=== PATIENT | female | born 1970 | race Caucasian/White ===

== ENCOUNTER 2017-07-05 22:10 | Inpatient (IN) | payer OTHER ==
[2017-07-05 23:29] LABS: #Basophils 0.1 thou/uL (0.0-0.2); #Lymphocytes 2.8 thou/uL (1.20-3.40); #Monocytes 1.6 thou/uL (0.11-0.59); #Neutrophils 15.2 thou/uL (1.40-6.50); %Basophils 0.6 % (0.0-1.0); %Eosinophils 0.2 % (0.0-10.0); %Lymphocytes 14.3 % (21.0-51.0); Hemoglobin 16.2 g/dL (12.0-16.0); Mean Corpuscular HGB CONC 35.2 g/dL (32.0-36.0); Mean Corpuscular Hemoglobin 30.7 pg (27.0-31.0); Mean Corpuscular Volume 87.3 fl (81.0-99.0); Platelet Count 425 thou/uL (130-400); RBC Distribution Width 12.7 % (11.5-14.5); Red Blood Cell (RBC) Count 5.29 mill/uL (4.20-5.40); White Blood Cell (WBC) Count 19.8 thou/uL (4.8-10.8)
[2017-07-05 23:48] LABS: ALT (SGPT) 22 U/L (8-55); AST (SGOT) 27 U/L (5-34); Alkaline Phosphatase 100 U/L (40-150); Anion Gap 25 mmol/L (10-20); BUN (Urea Nitrogen) 30 mg/dL (7.0-18.7); Bilirubin, Total 1.2 mg/dL (0.2-1.2); Calc. Creatinine Clearance 0 mL/min (70-130); Calcium 11.5 mg/dL (7.8-10.44); Carbon Dioxide 25 mmol/L (22-29); Chloride 80 mmol/L (98-107); Estimated GFR-MDRD 9; Globulin 4.4 g/dL (2.4-3.5); Glucose 133 mg/dL (70-105); Potassium 3.2 mmol/L (3.5-5.1); Protein, Total 10.4 g/dL (6.0-8.3); Sodium 127 mmol/L (136-145)
[2017-07-05] MEDS ORDERED: Ondansetron HCl/PF 4 MG/2 ML Vial ONE (23:50)
[2017-07-05] MEDS ORDERED: Morphine 4 MG/ML VIAL ONE (23:56)
[2017-07-05] MEDS ORDERED: Mag-Al 1200 mg/1200 mg/30 ML UDCUP ONE (23:56)
[2017-07-05] MEDS ORDERED: Lidocaine Viscous Sol 2% 15 ml UD Cup ONE (23:56)
[2017-07-06 00:16] LABS: BHCG - Serum Negative (NEGATIVE); Pregs Control Background? CLEAR/WHITE (CLR/WHITE); Pregs Control Bar Appear? YES (CONTROL BAR)
[2017-07-06 00:21] LABS: Magnesium 2.6 mg/dL (1.6-2.6)
[2017-07-06] MEDS ORDERED: Morphine 4 MG/ML VIAL ONE (00:52)
[2017-07-06] MEDS ORDERED: Sodium Chloride 0.9% 15 ML NEB ONE (02:51)
[2017-07-06] MEDS ORDERED: Sodium Chloride 0.9% 1,000 ML IV SCH ×3 (02:59→08:30)
[2017-07-06 03:29] LABS: Bacteria/HPF None Seen HPF (None Seen); Bilirubin Small (Negative); Blood, Urine Large (Negative); Clarity TURBID (Clear); Glucose, Urine (Dipstick) Negative (Negative); Leukocyte Trace (Negative); Nitrite Negative (Negative); Protein, Urine (Dipstick) 100 mg/dL (Neg-Trace); Specific Gravity, Urine 1.024 (1.002-1.036); Urobilinogen 0.2 mg/dL (0.2-1.0); WBC/HPF 21-50 HPF (0-3)
[2017-07-06 03:37] LABS: Hyaline Casts/LPF 0-3 HYALINE CAST LPF (0-3 Hyaline); Other Casts/LPF None Seen LPF (0-3 Hyaline)
[2017-07-06 03:38] LABS: Crystals/HPF 1+ CA OXALATE HPF (Negative)
[2017-07-06] MEDS ORDERED: ALPRAZolam 0.25 MG TAB PO PRN (04:02)
[2017-07-06 04:14] LABS: Lactic Acid 1.6 mmol/L (0.5-2.2)
[2017-07-06 04:17] VITALS: BMI 23.4
[2017-07-06] MEDS ORDERED: Fentanyl 100 MCG/2 ML VIAL SLOW IVP PRN (04:37)
--- NOTE | 2017-07-06 04:53 | PDOC.FPRHP ---
- History of Present Illness Chief Complaint: N/V, weakness, cramping x3 days History of Present Illness: 47 year old female with PMH of HTN and anxiety, and depression that presents with a 3 day history of N/V, weakness, and muscle cramping. She felt fine previous to the onset of these symptoms and has been otherwise healthy. Patient follows regularly with her PCP and is compliant with her BP medications. She states that she has been unable to eat for the past few days. She has tried to stay hydrated by drinking a lot of fluids, but has had difficulty keeping those down, as well. She started taking potassium yesterday because she was concerned her potassium would be low from all of the vomiting. She took a total of six 99 mg tablets in a 24 hour period. She describes the emesis as yellow/green in color, but denies any coffee ground emesis. She had one episode of diarrhea, but has otherwise had normal stools. She denies any bright red blood per rectum or maroon colored stools. Patient endorses diffuse abdominal pain over the last few days. She did state that prior to the onset of the symptoms she had eaten some [place] food. She describes a reflux sensation with some mile epigastric pain. She does have a history of several episodes pancreatitis which was attributed to a medication which has since been discontinued. She has not had any episodes of pancreatitis since that medication was stopped. Patient also endorses LBP which started a few days before the N/V and has worsened since that time. She has a sister with renal failure which she attributes to non-compliance with BP medications. Patient does state that she has had decreased urinary output over the last few days, but denies dysuria. Patient endorses a rash on her back and left arm that started on Wednesday. The rash was made worse with hot water and has progressed over the back. The rash does not itch. Patient denies any fevers or chills during this current illness. ED Course: Patient was started on fluids at 150 mL/hr, 4 mg of zofran, 8 mg of Morphine, and a GI cocktail down in the ED. - Allergies/Adverse Reactions Allergies Allergy/AdvReac Type Severity Reaction Status Date / Time escitalopram [From Lexapro] AdvReac Severe Hives Verified 07/06/17 03:47 mirtazapine [From Remeron] AdvReac Verified 07/06/17 03:47 - Home Medications Medication Instructions Recorded Confirmed Type ALPRAZolam [Alprazolam] 0.5 mg PO HS 07/06/17 07/06/17 History ALPRAZolam [Xanax] 0.25 mg PO BID PRN 07/06/17 07/06/17 History Amitriptyline HCl [Amitriptyline 50 mg PO HS 07/06/17 07/06/17 History HCl] Losartan Potassium [Losartan 100 mg PO DAILY 07/06/17 07/06/17 History Potassium] Metoprolol Tartrate [Lopressor] 50 mg PO HS 07/06/17 07/06/17 History Omeprazole 20 mg PO DAILY 07/06/17 07/06/17 History - History PMHx: HTN, Anxiety, Depression PSHx: None FHx: Mother with HTN. Sister with renal failure presumed to be secondary to non- compliance with BP medication. Social: Patient denies tobacco, alcohol or drug use. - Review of Systems General: reports: weight/appetite/sleep changes (decreased appetite 2/2 N/V). denies: fever/chills, night sweats, fatigue Eyes: reports: eye pain (Irritation from dry eyes and contacts). denies: vision changes ENT: denies: nasal congestion, rhinorrhea Respiratory: denies: cough, congestion, shortness of breath Cardiovascular: denies: chest pain, palpitation, edema Gastrointestinal: reports: nausea, vomiting, abdominal pain. denies: constipation, GI bleeding Genitourinary: reports: dysuria. denies: polyuria Skin: reports: rashes (Blanchable rash on back and left arm) Musculoskeletal: reports: pain (LBP), other (Muscle cramping) Neurological: reports: weakness. denies: syncope, seizure Psychological: reports: anxiety, depression - Vital signs BP: [128/78] HR: [64] RR: [16] Tmax: [97.9] Pox: [100]% on [RA] Wt: [60 kg] - Physical Exam Constitutional: NAD, awake, alert and oriented, well developed HEENT: normocephalic and atraumatic, EOMI, no scleral icterus, grossly normal vision -HEENT: Dry mucous membranes Neck: supple Heart: RRR, normal S1/S2, no murmurs/rubs/gallops, pulses present Lungs: CTAB, no respiratory distress, no wheezing Abdomen: soft, non-tender, bowel sounds present, no masses/distention Musculoskeletal: normal structure -Musculoskeletal: Costovertebral angle tenderness on right Neurological: no focal deficit, CN II-XII intact Skin: good turgor, capillary refill <2 seconds -Skin: Blanchable, erythematous, non-pruritic macular rash with some confluent lesions located diffusely throughout on the back and on the flexor surface of the right arm. Heme/Lymphatic: no unusual bruising or bleeding Psychiatric: normal mood and affect, good judgment and insight FMR H&P: Results - Labs Result Diagrams: 07/06/17 03:35 07/06/17 15:00 Lab results: WBC 19.8 thou/uL (4.8-10.8) H 07/05/17 23:21 Hgb 16.2 g/dL (12.0-16.0) H 07/05/17 23:21 Hct 46.2 % (36.0-47.0) 07/05/17 23:21 MCV 87.3 fl (81.0-99.0) 07/05/17 23:21 Plt Count 425 thou/uL (130-400) H 07/05/17 23:21 Neutrophils % 77.0 % (42.0-75.0) H 07/05/17 23:21 Sodium 127 mmol/L (136-145) L 07/05/17 23:21 Potassium 3.2 mmol/L (3.5-5.1) L 07/05/17 23:21 Chloride 80 mmol/L (98-107) L 07/05/17 23:21 Carbon Dioxide 25 mmol/L (22-29) 07/05/17 23:21 BUN 30 mg/dL (7.0-18.7) H 07/05/17 23:21 Creatinine 5.10 mg/dL (0.6-1.1) H 07/05/17 23:21 Glucose 133 mg/dL (70-105) H 07/05/17 23:21 Lactic Acid 1.6 mmol/L (0.5-2.2) 07/06/17 03:52 Calcium 11.5 mg/dL (7.8-10.44) H 07/05/17 23:21 Total Bilirubin 1.2 mg/dL (0.2-1.2) 07/05/17 23:21 AST 27 U/L (5-34) 07/05/17 23:21 ALT 22 U/L (8-55) 07/05/17 23:21 Alkaline Phosphatase 100 U/L (40-150) 07/05/17 23:21 Serum Total Protein 10.4 g/dL (6.0-8.3) H 07/05/17 23:21 Albumin 6.0 g/dL (3.5-5.0) H 07/05/17 23:21 Lipase 33 U/L (8-78) 07/05/17 23:41 Urine Ketones Negative mg/dL (Negative) 07/06/17 01:41 Urine Blood Large (Negative) H 07/06/17 01:41 Urine Nitrite Negative (Negative) 07/06/17 01:41 Ur Leukocyte Esterase Trace (Negative) H 07/06/17 01:41 Urine RBC 4-6 HPF (0-3) 07/06/17 01:41 Urine WBC 21-50 HPF (0-3) H 07/06/17 01:41 Ur Squamous Epith Cells 4-6 HPF (0-3) H 07/06/17 01:41 Urine Bacteria None Seen HPF (None Seen) 07/06/17 01:41 - Radiology Interpretation Chest x-ray Additional comment: No acute findings CT scan - abdomen Additional comment: No acute findings FMR H&P: A/P - Problem List (1) Acute renal failure Current Visit: Yes Status: Acute (2) Macular erythematous rash Current Visit: Yes Status: Acute Code(s): L53.8 - OTHER SPECIFIED ERYTHEMATOUS CONDITIONS (3) HTN (hypertension) Current Visit: Yes Status: Acute Code(s): I10 - ESSENTIAL (PRIMARY) HYPERTENSION (4) Anxiety Current Visit: Yes Status: Acute Code(s): F41.9 - ANXIETY DISORDER, UNSPECIFIED (5) Depression Current Visit: Yes Status: Acute Code(s): F32.9 - MAJOR DEPRESSIVE DISORDER , SINGLE EPISODE, UNSPECIFIED - Plan Acute renal failure - New onset without history of prior kidney disease; presented with N/V x3 days - Consult nephrology in the AM - K+ 3.2 - BUN 30, Cr 5.10 - Given 1L NS bolus, started on maintenance fluids at 200 ml/hr - CK pending - Renal U/S pending - CT abdomen did not show any acute findings - Stool lactoferrin pending - Replace electrolytes as appropriate - WBC 19,000, LA 2.7 - Blood cultures pending - HIV, syphilis studies pending - Urine studies pending - UA with trace leukocyte esterases and 21-50 WBC's, Urine culture pending, large blood - Consider starting rocephin until cultures result Macular, erythematous, non-pruritic rash - No recent travel history - HIV, Syphilis studies pending Hyponatremia - Likely 2/2 N/V - NS @ 200 ml/hr Hypokalemia - Likely 2/2 N/V - Replaced x1 with 20 meq KCL - Monitor HTN - Continue metoprolol - Hold losartan due to kidney failure Anxiety - Continue home medications Depression - Continue home medications FMR H&P: Upper Level - Pertinent history 47yo CF w/ pmhx sig for well-controlled HTN, anxiety, and prior pancreatitis presents after 4 days of recurrent nausea and vomiting and inability to tolerate po. Pt endorses bilious and green-tinged vomiting but no bloody or coffee-ground emesis noted. 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 The only associated abdominal pain was mild and epigastric and more reflux-like per pt, as well as some right-sided back pain. Denied any associated fever or chills. Endorses dec UOP. No sig travel hx recently or ill contacts. Did have take-out food on Sat just prior to initiation of symptoms which was [place] food with rice, chicken and vegetables. She has taken a few tylenol throughout the week and potassium tablets for aches / cramps related to her presumed dehydration. Compliant on anti-HTNive regimen ( losartan + metoprolol). Denies any NSAIDs, abx or other nephrotoxins. She has tried to push po fluids but has repetitively vomited anything by mouth. No prior renal problems in the past. Sister has CKD due to uncontrolled HTN. Fhx- HTN Social hx- no TAD - Pertinent findings PE- Gen- well appearing, NAD CV- RRR no mrg Lungs- CTAB Abd- soft, nontender to palpation, +Rt CVAT LE- no edema, intact dp pulses b/l Neuro- no focal deficits Derm- erythematous macular non-pruritic rash diffusely to back which blanched. few confluent patches. Laboratory Tests 07/05/17 07/05/17 07/05/17 23:21 23:21 23:41 WBC 19.8 H Hgb 16.2 H Hct 46.2 Plt Count 425 H Neutrophils % 77.0 H Sodium 127 L Potassium 3.2 L Chloride 80 L Carbon Dioxide 25 Anion Gap 25 H BUN 30 H Creatinine 5.10 H Estimated GFR (MDRD) 9 Glucose 133 H Lactic Acid Magnesium 2.6 Lipase 33 Urine Protein Urine Blood Urine Bilirubin Ur Leukocyte Esterase Urine WBC Urine Crystals Urine Creatinine Urine Sodium 07/05/17 07/06/17 07/06/17 23:41 01:41 03:52 WBC Hgb Hct Plt Count Neutrophils % Sodium Potassium Chloride Carbon Dioxide Anion Gap BUN Creatinine Estimated GFR (MDRD) Glucose Lactic Acid 2.7 H 1.6 Magnesium Lipase Urine Protein 100 H Urine Blood Large H Urine Bilirubin Small H Ur Leukocyte Esterase Trace H Urine WBC 21-50 H Urine Crystals 1+ CA OXALATE Urine Creatinine Urine Sodium 07/06/17 07/06/17 04:34 04:34 WBC Hgb Hct Plt Count Neutrophils % Sodium Potassium Chloride Carbon Dioxide Anion Gap BUN Creatinine Estimated GFR (MDRD) Glucose Lactic Acid Magnesium Lipase Urine Protein Urine Blood Urine Bilirubin Ur Leukocyte Esterase Urine WBC Urine Crystals Urine Creatinine 35.97 L Urine Sodium Less than 20 CT abd (w/o contrast)- neg - Plan Date/Time: 07/06/17 0440 47yo CF with pmhx HTN, prior pancreatitis p/w- 1) Acute renal failure- likely combination of prerenal + intrinsic due to history and clinical presentation and BUN:Cr ratio. DDx includes dehydration, post-infectious glomerulonephritis, etc. Check FeNa and urine microscopy. +Rt flank pain/CVAT, therefore check renal US. Give IVF for fluid repletion and monitor strict I&Os. avoid nephrotoxins, and consult nephrology. 2) Acute gastroenteritis- check fecal WBC, and if positive, will check for infectious etiology. Hx may be significant with relation to recent take out food. DDx includes viral etiology, e coli, b cereus, campylobacter, etc. treat symptomatically. no indication for abx at this time but will monitor. 3) hypovolemic hyponatremia- fluid repletion and recheck BMP in 6 hrs. avoid rapid correction of Na. 4) Maculopapular rash- undetermined etiology, but may be related to #1 & #2. check studies as above, HIV, RPR and Hep C. 5) HTN- hold losartan, continue metoprolol. monitor bps. I, [Yolanda Guaman DO ([email or web address])], have evaluated this patient and agree with findings/plan as outlined by internet webmaster resident. Pertinent changes/additions are listed here. Attending Addendum - Attending Addendum Date/Time: 07/06/17 1705 I personally evaluated the patient and discussed the management with Dr. Ortiz and Dr. Guaman I agree with the History, Examination, Assessment and Plan documented above with any addition or exceptions noted below. 47 yo female with history of HTN, A/D presents with intractable N/V since Wednesday. N/V appears to be related to food ingestion on Wednesday. Has improved with medications. On labs patient noted to have stage 3 ANGUS with GFR of 9. IVF bolus have been started. Will continue with maintenance x2. Repeat CMP vs BMP. Trace protein and no microscopic hematuria. Suspecting prerenal. Will obtain renal sono with dopplers to evaluate other causes. Consider vasculititis/autoimmune/other intrinsic causes if IVF resistation does not improve renal function. Nephro consulted. Erythematous macular patch vs erythroderma rash to face and trunk. Patient states rash has been present for many years. Comes and goes. Occurs with some stress. ABrayMD
[2017-07-06 05:03] LABS: Osmolality, Urine 126 mOsm/kg (300-900)
[2017-07-06 05:18] LABS: Sodium, Urine Less than 20 mmol/L (Not Available)
[2017-07-06] MEDS ORDERED: Potassium Chloride 20 MEQ/100 ML PREMIX BAG IVPB SCH (05:30)
[2017-07-06] MEDS ORDERED: Potassium Chloride 20 MEQ in Sodium Chloride 0.9% 250 ML 250 ML IVPB SCH (06:00)
[2017-07-06 07:00] LABS: HIV (1/2) Antibody/Antigen Non-Reactive (NonReactive); Syphilis Antibody Nonreactive (Nonreactive); Syphilis Antibody Index 0.03 S/CO (<1.00 Non-Reactive)
[2017-07-06 07:55] LABS: ALT (SGPT) 24 U/L (8-55); AST (SGOT) 30 U/L (5-34); Albumin Greater than 6.2 g/dL (3.5-5.0); Alkaline Phosphatase 100 U/L (40-150); Anion Gap 29 mmol/L (10-20); BUN (Urea Nitrogen) 31 mg/dL (7.0-18.7); Bilirubin, Total 1.3 mg/dL (0.2-1.2); CK (CPK) 922 U/L (29-168); Calc. Creatinine Clearance 13 mL/min (70-130); Calcium 11.6 mg/dL (7.8-10.44); Carbon Dioxide 22 mmol/L (22-29); Chloride 81 mmol/L (98-107); Estimated GFR-MDRD 9; Glucose 137 mg/dL (70-105); Potassium 3.4 mmol/L (3.5-5.1); Protein, Total 10.5 g/dL (6.0-8.3); Sodium 129 mmol/L (136-145)
[2017-07-06 08:04] LABS: Globulin 4.2 g/dL (2.4-3.5)
[2017-07-06 08:06] LABS: #Lymphocytes 2.1 thou/uL (1.20-3.40); #Monocytes 1.2 thou/uL (0.11-0.59); #Neutrophils 11.7 thou/uL (1.40-6.50); %Basophils 0.3 % (0.0-1.0); %Eosinophils 0.2 % (0.0-10.0); %Lymphocytes 14.1 % (21.0-51.0); %Monocytes 7.9 % (0.0-10.0); %Neutrophils 77.6 % (42.0-75.0); Hemoglobin 12.8 g/dL (12.0-16.0); Mean Corpuscular HGB CONC 33.5 g/dL (32.0-36.0); Mean Corpuscular Hemoglobin 30.1 pg (27.0-31.0); Mean Corpuscular Volume 89.8 fl (81.0-99.0); Mean Platelet Volume 7.8 fL (7.4-10.4); Platelet Count 316 thou/uL (130-400); RBC Distribution Width 12.6 % (11.5-14.5); Red Blood Cell (RBC) Count 4.25 mill/uL (4.20-5.40); White Blood Cell (WBC) Count 15.1 thou/uL (4.8-10.8)
[2017-07-06] MEDS ORDERED: Sodium Chloride For Inhalation 0.9% 3 ML NEB ONE (08:19)
--- NOTE | 2017-07-06 08:20 | RAD ---
PORTABLE UPRIGHT FRONTAL CHEST RADIOGRAPH: Date: 07-06-17 Comparison: 06-18-10 History: Abdominal pain. FINDINGS: Lungs are clear. Heart and mediastinal contours are unremarkable. IMPRESSION: No acute findings. POS: [facility]
--- NOTE | 2017-07-06 08:33 | CT ---
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 Pt also reports reflux, decreased appetite, and diffuse abdominal pain. Denies diarrhea or constip ation. Denies dysuria or vaginal discharge. Denies fever at home or chills. Lmp 05/20/17, pt not sexual ly active. Pt states that she has been trying potassium pills and staying hydrated at home with no relief of symptoms. Pt has h/o pancreatitis, ibs, anxiety, and reflux. Denies h/o abdominal s urgeries. TECHNIQUE: Axial computed tomography images of the abdomen and pelvis without intravenous contrast. Coronal reformatted images were created and reviewed. COMPARISON: No relevant prior studies available. FINDINGS: Lower thorax: No acute findings. ABDOMEN: Liver: Unremarkable. Gallbladder and bile ducts: Gallbladder sludge. No cholecystitis or biliary ductal dilatation. Pancreas: Unremarkable. No ductal dilation. Spleen: Unremarkable. No splenomegaly. Adrenals: Unremarkable. No mass. Kidneys and ureters: Unremarkable. No obstructing stones. No hydronephrosis. Stomach and bowel: No bowel wall thickening or intestinal obstruction. Appendix: Normal appendix. PELVIS: Bladder: Unremarkable. No stones. Reproductive: Uterus and ovaries are unremarkable. ABDOMEN and PELVIS: Intraperitoneal space: Unremarkable. No free air. No significant fluid collection. Bones/joints: No acute fracture. No dislocation. Soft tissues: Unremarkable. Vasculature: Unremarkable. No abdominal aortic aneurysm. Lymph nodes: Unremarkable. No enlarged lymph nodes. IMPRESSION: No acute findings. Thank you for allowing us to participate in the care of your patient. Dictated and Authenticated by: Casimiro So MD 07/06/2017 12:45 AM Central Time ([place] & [place]) FINAL REPORT: CT ABDOMEN AND PELVIS: Date: 07-06-17 History: Nausea, vomiting, diffuse abdominal pain. FINDINGS: I agree with the preliminary [facility] report dictated by Dr. So. Lack of contrast limits assessment of the viscera bowel vascular structures and for lymphadenopathy. Imaged lung base is unremarkable. No free intraperitoneal air or fluid. The stomach is distended and filled with fluid. Probable gallbladder sludge. Liver, spleen, pancreas and adrenal glands unremarkab le. There is a small hypodensity in the lateral right renal midpole measuring 6 mm, too small to raji acterize. No evidence for nephrolithiasis or obstructive uropathy noted on either side. Exophytic hyp odense lesion emanates from upper pole right kidney posteriorly measuring 9 mm, also too small to garry racterize. Urinary bladder is completely decompressed and poorly assessed. The uterus appears lobulated, which may signify uterine fibroid disease. There is no evidence for bowel inflammatory change or bowel obstruction. Visualized portions of the a ppendix appear grossly unremarkable. No acute osseous abnormality is seen. IMPRESSION: I agree with the preliminary [facility] report that there is no evidence for an acute abnormality. There is questionable gallbladder sludge and possible uterine fibroid disease. There are also subcentimeter r ight renal hypodensities which are too small to characterize on this exam. POS: [facility]
--- NOTE | 2017-07-06 09:06 | ULT ---
RENAL SONOGRAM: History: Renal failure. FINDINGS: The right kidney is 11.9 cm and the left is 10.5 cm. Each has a normal sonographic appearance without evidence of mass, stone, or hydronephrosis. Urinary bladder is incompletely distended. No focal abno rmalities. IMPRESSION: No evidence of urinary tract obstruction. No significant abnormalities are demonstrated. POS: [facility]
[2017-07-06] MEDS: Sodium Chloride 0.9% 1,000 ML IV SCH ×4 (10:29→23:29)
[2017-07-06] MEDS: Acetaminophen 500 MG TAB PO PRN ×3 (11:41→21:05)
[2017-07-06] MEDS ORDERED: Artificial Tears 18 DROP/0.9 ML EA EYE PRN (13:26)
--- NOTE | 2017-07-06 13:28 | CON ---
DATE OF CONSULTATION: 07/06/2017 CONSULTING PHYSICIAN: Geno Friend M.D. REQUESTING PHYSICIAN: [facility]. REASON FOR CONSULTATION: Acute kidney injury. IMPRESSION: 1. Acute kidney injury. This is possibly related to prerenal acute kidney injury in the context of persistent nausea and vomiting with poor p.o. intake; however, I am consent that an inflammatory proc ess might be going on and in this case, possibility of a crescentic glomerulonephritis, possibly in t he context of autoimmune rapidly progressive glomerulonephritis versus immune complex mediated glomer ulonephritis. This concern is as a result of the fact that this patient does have proteinuria, hemat uria and the presence of skin rash. 2. Pseudohyponatremia. This is likely in the context of hyperproteinemia. 3. Hyperproteinemia as well as hypercalcemia. This may be a reflection of the volume status of this patient. PLAN: 1. I do agree with continued aggressive IV fluid resuscitation; however, if within the next 24-48 ho urs, no significant improvement in the renal function, I will strongly recommend kidney biopsy for de finitive diagnosis. 2. We will begin to send autoimmune panel including complements and ANCA serology. 3. Renally dose all medications per low GFR. 4. Avoid potentially nephrotoxic agents. 5. Further management will be dependent on the clinical course as well as the response of this patie nt to IV fluid resuscitation. HISTORY OF PRESENT ILLNESS: History is that of a 47-year-old female patient who developed nausea, vo miting, and lower back pain, presented to the hospital here where patient was noted to have elevated creatinine of 5.1. Patient prior to these had normal renal function. She denies any use of any pote ntially nephrotoxic agents. No nonsteroidal anti-inflammatory drug usage recently. The patient kem es any dysuria nor any obvious hematuria. Urinalysis of this patient, however, did point to possible hematuria. The patient has never had similar symptoms in the past. Denies frothy urine. As a resu lt of these findings, decision has been taken to involve Renal in the management of this case. PAST MEDICAL HISTORY: Significant for hypertension, anxiety, and depression. MEDICATIONS: Reviewed and as documented on [employer]. SOCIAL HISTORY: Denies alcohol or illicit drug use. Patient occasionally smokes cigarettes. REVIEW OF SYSTEMS: As documented in the body of the history. All the other systems were reviewed an d found not to be significantly related to presenting illness. LABORATORY INVESTIGATION: Significant for the following: Sodium 129, potassium 3.4, creatinine 5.07 , BUN of 31 and serum osmolality of 283, calcium 11.6 with lactic acid of 2.7, total protein of 10.5 and albumin that is greater than 6.2, creatine kinase 922. PHYSICAL EXAMINATION: GENERAL: Patient was noted to obviously be flushed looking, complaining of left eye discomfort. VITAL SIGNS: Afebrile, temperature 98.7, pulse 66, respiratory 18, O2 saturation 100% with blood pre ssure 113/56. HEENT: Unremarkable except the left eye irritation going on. DIGESTIVE: Revealed a benign abdomen with positive bowel sounds. EXTREMITIES: No peripheral edema. SKIN: Reveals the presence of some rash involving the upper body as well. NEUROLOGIC: Alert, oriented. No lateralizing sign. LYMPHATICS: No peripheral lymphadenopathy. SUMMARY: A 47-year-old female patient who presented here with nausea and vomiting noted with elevate d creatinine, query cause. Also, now complaining of left eye discomfort, possibly will benefit from ophthalmology evaluation. Thank you for this consultation. We will follow with you.
[2017-07-06] MEDS ORDERED: Erythromycin Base 0.5% Oint 1 GM TUBE L EYE SCH (13:30)
[2017-07-06] MEDS ORDERED: Metoclopramide HCl 10 MG/2 ML VIAL IVP SCH (14:45)
[2017-07-06] MEDS ORDERED: diphenhydrAMINE 50 MG/ML VIAL IVP SCH (14:45)
[2017-07-06 14:54] LABS: Complement-C4 14.3 mg/dL (15-57)
[2017-07-06 15:38] LABS: Anion Gap 15 mmol/L (10-20); BUN (Urea Nitrogen) 21 mg/dL (7.0-18.7); Calc. Creatinine Clearance 30 mL/min (70-130); Calcium 9.2 mg/dL (7.8-10.44); Carbon Dioxide 24 mmol/L (22-29); Chloride 103 mmol/L (98-107); Estimated GFR-MDRD 24; Glucose 80 mg/dL (70-105); Potassium 3.5 mmol/L (3.5-5.1); Sodium 138 mmol/L (136-145)
[2017-07-06] MEDS ORDERED: Amitriptyline HCl 25 MG TAB PO SCH (21:00)
[2017-07-06] MEDS ORDERED: ALPRAZolam 0.5 MG TAB PO SCH (21:00)
[2017-07-06] MEDS ORDERED: Metoprolol Tartrate 50 MG TAB PO SCH (21:00)
[2017-07-06] MEDS: Erythromycin Base 0.5% Oint 1 GM TUBE L EYE SCH (21:03)
[2017-07-07 06:08] LABS: #Basophils 0.1 thou/uL (0.0-0.2); #Monocytes 0.7 thou/uL (0.11-0.59); #Neutrophils 2.7 thou/uL (1.40-6.50); %Basophils 0.9 % (0.0-1.0); %Eosinophils 0.6 % (0.0-10.0); %Lymphocytes 46.9 % (21.0-51.0); %Monocytes 10.2 % (0.0-10.0); %Neutrophils 41.3 % (42.0-75.0); Hemoglobin 11.9 g/dL (12.0-16.0); Mean Corpuscular HGB CONC 33.9 g/dL (32.0-36.0); Mean Corpuscular Hemoglobin 30.8 pg (27.0-31.0); Mean Corpuscular Volume 90.9 fl (81.0-99.0); Mean Platelet Volume 7.6 fL (7.4-10.4); Platelet Count 260 thou/uL (130-400); RBC Distribution Width 12.6 % (11.5-14.5); Red Blood Cell (RBC) Count 3.87 mill/uL (4.20-5.40); White Blood Cell (WBC) Count 6.5 thou/uL (4.8-10.8)
[2017-07-07 06:15] LABS: Anion Gap 11 mmol/L (10-20); BUN (Urea Nitrogen) 14 mg/dL (7.0-18.7); Calc. Creatinine Clearance 58 mL/min (70-130); Calcium 8.4 mg/dL (7.8-10.44); Carbon Dioxide 19 mmol/L (22-29); Chloride 111 mmol/L (98-107); Estimated GFR-MDRD 51; Glucose 81 mg/dL (70-105); Potassium 4.1 mmol/L (3.5-5.1); Sodium 137 mmol/L (136-145)
[2017-07-07] MEDS: Erythromycin Base 0.5% Oint 1 GM TUBE L EYE SCH ×2 (06:15→09:26)
[2017-07-07] MEDS ORDERED: Sodium Chloride 0.9% 1,000 ML IV SCH (08:13)
[2017-07-07 08:47] VITALS: BP 170/90; TEMP 97.9
[2017-07-07] MEDS: Sodium Chloride 0.9% 1,000 ML IV SCH ×2 (09:26→09:27)
--- NOTE | 2017-07-07 11:40 | PDOC.FM ---
- Subjective Subjective: No acute events overnight. Pt is eating and drinking well and making good urine. She states urine is clear and does not report any blood tinged urine or bloody stool. - Objective Vital Signs & Weight: Vital Signs (12 hours) Temp Pulse Resp BP BP Pulse Ox 07/07/17 08:44 97.9 F 70 18 170/90 H 98 07/07/17 08:00 98 F 66 18 07/07/17 04:00 98 F 66 18 143/72 H Weight Weight 60 kg I&O: 07/06/17 07/07/17 07/08/17 06:59 06:59 06:59 Intake Total 2622 3050 Output Total 1600 3190 Balance 1022 -140 Result Diagrams: 07/07/17 05:24 07/07/17 05:24 <Kiko Isaac - Last Filed: 07/07/17 11:37> - Objective Vital Signs & Weight: Vital Signs (12 hours) Temp Pulse Resp BP BP Pulse Ox 07/07/17 08:44 97.9 F 70 18 170/90 H 98 07/07/17 08:00 98 F 66 18 07/07/17 04:00 98 F 66 18 143/72 H Weight Weight 60 kg I&O: 07/06/17 07/07/17 07/08/17 06:59 06:59 06:59 Intake Total 2622 3050 Output Total 1600 3190 Balance 1022 -140 Result Diagrams: 07/07/17 05:24 07/07/17 05:24 <Dayana Torres - Last Filed: 07/07/17 14:34> Phys Exam - Physical Examination Constitutional: NAD HEENT: PERRLA, sclera anicteric conjunctivitis lt eye Neck: no nodes, no JVD Respiratory: no wheezing, no rales, no rhonchi, clear to auscultation bilateral Cardiovascular: RRR, no significant murmur, no rub Gastrointestinal: soft, non-tender, no distention, positive bowel sounds Musculoskeletal: no edema, pulses present Neurological: non-focal, moves all 4 limbs Psychiatric: normal affect Deviation from normal: blanchable non-pruritic erythematous rash, improved from yesterday <Kiko Isaac - Last Filed: 07/07/17 11:37> Dx/Plan (1) Acute renal failure Status: Acute (2) Macular erythematous rash Code(s): L53.8 - OTHER SPECIFIED ERYTHEMATOUS CONDITIONS Status: Acute (3) Conjunctivitis of left eye Code(s): H10.9 - UNSPECIFIED CONJUNCTIVITIS Status: Acute (4) Hyponatremia Code(s): E87.1 - HYPO-OSMOLALITY AND HYPONATREMIA Status: Acute (5) Hypokalemia Code(s): E87.6 - HYPOKALEMIA Status: Acute (6) HTN (hypertension) Code(s): I10 - ESSENTIAL (PRIMARY) HYPERTENSION Status: Acute - Plan Plan: Acute renal failure - greatly improved with IVF, cont PO hydration and Ok for discharge -pt can resume ARB after DC -f/u with nephrology in 2 weeks Macular, erythematous, non-pruritic rash - improving -unknown source -autoimmune studies pending, will f/u with results -stable for DC to home Conjunctivitis: -possibly 2/2 corneal abrasion, will treat empirically with erythromycin ointment for 5 days -f/u with pcp Hyponatremia -resolved Hypokalemia - resolved HTN - Continue metoprolol - Hold losartan due to kidney failure, can resume after DC -f/u with PCP -DC to home today Anxiety - Continue home medications <Kiko Isaac - Last Filed: 07/07/17 11:37> (1) Acute renal failure Status: Acute (2) Macular erythematous rash Code(s): L53.8 - OTHER SPECIFIED ERYTHEMATOUS CONDITIONS Status: Acute (3) HTN (hypertension) Code(s): I10 - ESSENTIAL (PRIMARY) HYPERTENSION Status: Acute (4) Anxiety Code(s): F41.9 - ANXIETY DISORDER, UNSPECIFIED Status: Acute (5) Depression Code(s): F32.9 - MAJOR DEPRESSIVE DISORDER, SINGLE EPISODE, UNSPECIFIED Status : Acute <Dayana Torres - Last Filed: 07/07/17 14:34> Attending Addendum - Attending Addendum Date/Time: 07/07/17 [id number] I personally evaluated the patient and discussed the management with Dr. Isaac and Dr. Joseph I agree with the History, Examination, Assessment and Plan documented above with any addition or exceptions noted below. Doing much better today. Labs and vital signs reviewed. Renal function drastically improved. Cleared for d/c from nephro. Will d/c to home. Continue with PO hydration. Follow up with PCP next week for repeat labs. No N/V since admission. Elicia <Dayana Torres - Last Filed: 07/07/17 14:34>
[2017-07-07 12:18] LABS: ANA Symphony (Qualitative) Negative (Negative); CCP IgG Antibody 0.8 EliAU/mL (<7 Negative); EliA RAS New Method **** NEW METHOD ****; Rheumatoid Factor IgA Antibody 2.6 IU/mL (<14 Negative); Rheumatoid Factor IgM Antibody Less than 0.5 IU/mL (<3.5 Negative)
--- NOTE | 2017-07-07 13:39 | PRG ---
DATE OF SERVICE: 07/07/2017 SUBJECTIVE: The patient is seen and examined, seems to be doing much better, very eager to go home. PHYSICAL EXAMINATION: VITAL SIGNS: Afebrile with temperature 98, pulse 66, respiratory 18, blood pressure 143/72. HEENT: Unremarkable with moist oral mucosa. No conjunctival injection or icterus. NECK: Supple. CARDIOVASCULAR: First and second heart sounds were heard. RESPIRATORY: Clear to auscultation. DIGESTIVE: Revealed a benign abdomen with positive bowel sounds. EXTREMITIES: No peripheral edema. SKIN: No new gross rash. LYMPHATICS: No peripheral lymphadenopathy. IMPRESSION: Acute kidney injury, which is much improved. PLAN: 1. From the renal standpoint, the patient is good for discharge. We will discontinue the current IV fluid. 2. Outpatient Nephrology followup within the next 2-4 weeks.
[2017-07-09 16:13] LABS: ANCA Pattern <1:20 titer (Neg:<1:20); ANCA Total <1:20 titer (Neg:<1:20); Atypical pANCA <1:20 titer (Neg:<1:20); Myeloperoxidase AutoAbs <9.0 U/mL (0.0-9.0); Proteinase-3 AutoAbs Less than 3.5 U/mL (0.0-3.5)
== END 2017-07-07 12:15 | disposition home or self-care (01) | DRG 683 ==
LOC: ERS 22:10 → 3SE 07-06 02:28
PROVIDERS: ADMIT Family Medicine; ATTEND Family Medicine
DX: N17.9 Acute kidney failure, unspecified (principal); E87.1 Hypo-osmolality and hyponatremia; E83.52 Hypercalcemia; E88.09 Other disorders of plasma-protein metabolism, not elsewhere classified; F17.210 Nicotine dependence, cigarettes, uncomplicated; L53.8 Other specified erythematous conditions; H10.9 Unspecified conjunctivitis; I10 Essential (primary) hypertension; F32.9 Major depressive disorder, single episode, unspecified; F41.9 Anxiety disorder, unspecified; E87.6 Hypokalemia
CPT/HCPCS: 36415; 71045; 74176; 76770; 80048; 80053; 81001; 82550; 82570; 83520; 83605; 83630; 83690; 83735; 83930; 83935; 83970; 84100; 84300; 84703; 85025; 86021; 86038; 86160; 86200; 86225; 86780; 87040; 87086; 87389; 87521; 96361; 96374; 96375; 96376; A4216; A4218; J1200; J2270; J2405; J2765; J3010; J3480; J7050

== ENCOUNTER 2017-07-14 10:56 | Emergency (ER) | payer OTHER ==
[2017-07-14 11:34] LABS: #Basophils 0.1 thou/uL (0.0-0.2); #Lymphocytes 2.5 thou/uL (1.20-3.40); #Monocytes 0.4 thou/uL (0.11-0.59); #Neutrophils 4.5 thou/uL (1.40-6.50); %Basophils 0.9 % (0.0-1.0); %Eosinophils 0.5 % (0.0-10.0); %Lymphocytes 33.5 % (21.0-51.0); %Monocytes 5.6 % (0.0-10.0); %Neutrophils 59.5 % (42.0-75.0); Hemoglobin 13.8 g/dL (12.0-16.0); Mean Corpuscular HGB CONC 34.2 g/dL (32.0-36.0); Mean Corpuscular Hemoglobin 31.1 pg (27.0-31.0); Mean Platelet Volume 7.3 fL (7.4-10.4); Platelet Count 404 thou/uL (130-400); RBC Distribution Width 12.4 % (11.5-14.5); Red Blood Cell (RBC) Count 4.43 mill/uL (4.20-5.40); White Blood Cell (WBC) Count 7.5 thou/uL (4.8-10.8)
[2017-07-14 11:53] LABS: ALT (SGPT) 17 U/L (8-55); AST (SGOT) 13 U/L (5-34); Albumin 5.1 g/dL (3.5-5.0); Alkaline Phosphatase 80 U/L (40-150); Anion Gap 16 mmol/L (10-20); BUN (Urea Nitrogen) 12 mg/dL (7.0-18.7); Bilirubin, Total 0.5 mg/dL (0.2-1.2); Calc. Creatinine Clearance 0 mL/min (70-130); Calcium 10.7 mg/dL (7.8-10.44); Carbon Dioxide 23 mmol/L (22-29); Chloride 97 mmol/L (98-107); Estimated GFR-MDRD 52; Globulin 3.4 g/dL (2.4-3.5); Glucose 109 mg/dL (70-105); Lipase 16 U/L (8-78); Potassium 3.9 mmol/L (3.5-5.1); Protein, Total 8.5 g/dL (6.0-8.3); Sodium 132 mmol/L (136-145)
[2017-07-14 14:08] LABS: Bilirubin Negative (Negative); Blood, Urine Moderate (Negative); Clarity TURBID (Clear); Glucose, Urine (Dipstick) 100 mg/dL (Negative); Leukocyte Negative (Negative); Nitrite Negative (Negative); Protein, Urine (Dipstick) 30 mg/dL (Neg-Trace); Specific Gravity, Urine 1.017 (1.002-1.036); Urobilinogen 0.2 mg/dL (0.2-1.0); pH, Urine 8.5 (5.0-9.0)
[2017-07-14 14:10] LABS: Bacteria/HPF None Seen HPF (None Seen); Hyaline Casts/LPF 0-3 HYALINE CAST LPF (0-3 Hyaline); RBC/HPF 21-50 HPF (0-3); Squamous Epithelial 0-3 HPF (0-3); WBC/HPF 0-3 HPF (0-3)
[2017-07-14 14:11] LABS: Pregnancy Test - Urine (BHCG) Negative (Negative); Pregu Control Background? CLEAR/WHITE (CLR/WHITE); Pregu Control Bar Appear? YES (CONTROL BAR); Specific Gravity 1.017 (1.002-1.036)
[2017-07-14] MEDS ORDERED: Morphine 4 MG/ML VIAL ONE ×2 (15:23→16:28)
[2017-07-14] MEDS ORDERED: Ondansetron HCl/PF 4 MG/2 ML Vial ONE ×2 (15:23→16:28)
--- NOTE | 2017-07-14 17:08 | CT ---
ABDOMEN CT WITHOUT CONTRAST PELVIC CT WITHOUT CONTRAST: History: Right flank pain, low back pain, nausea. Comparison: 07-06-16 Technique: Abdomen and pelvic CT is performed without IV or oral contrast. Coronal reformatted images are submitted for interpretation. FINDINGS: ABDOMEN CT: Lung bases are clear. Heart size is normal. No pericardial effusion. Descending thoracic aorta and ab dominal aorta are of normal caliber. No periaortic fat stranding. Symmetric attenuation of the psoas muscles. No gastrohepatic, retrocrural, or periportal lymphadenopathy. No mesenteric mass, lymphadenopathy, free air of free fluid. Limited evaluation of the solid organs due to lack of IV contrast. Grossly, no solid organ abnormalit y. Subtle hyperdensity in the lumen gallbladder may represent small sludge or stones. Stable hypodensity emanates from the posterior right renal cortex, unchanged. Bilaterally, no evidenc e of obstructive uropathy. Limited evaluation of the alimentary canal due to lack of oral contrast administration. No evidence o f bowel obstruction. There is fatty infiltration of the colonic mucosa, nonspecific. Normal caliber a ppendix. PELVIC CT: Uterus and adnexa structures are unremarkable. No mass, lymphadenopathy, free air or free fluid. Urin giovanna bladder is unremarkable. No lytic or blastic lesion in the osseous structures. IMPRESSION: 1. Possible sludge in the lumen of the gallbladder. No CT evidence of cholecystitis. 2. No evidence of obstructive uropathy. 3. Normal caliber appendix. POS: [facility]
[2017-07-14] MEDS ORDERED: Pantoprazole 40 MG VIAL ONE (17:55)
[2017-07-14] MEDS ORDERED: Mag-Al 1200 mg/1200 mg/30 ML UDCUP ONE (17:55)
[2017-07-14] MEDS ORDERED: Lidocaine Viscous Sol 2% 15 ml UD Cup ONE (17:55)
--- NOTE | 2017-07-17 19:59 | EKG ---
Test Reason : VOMITING Blood Pressure : / mmHG Vent. Rate : 069 BPM Atrial Rate : 069 BPM P-R Int : 154 ms QRS Dur : 076 ms QT Int : 470 ms P-R-T Axes : 063 079 072 degrees QTc Int : 503 ms Normal sinus rhythm with sinus arrhythmia Possible Left atrial enlargement Nonspecific ST abnormality Prolonged QT Abnormal ECG Confirmed by JERSEY KEMP ([id number]), acquisition editor JUVE DECKER ([id number]) on 07/17/2017 7:59:28 PM Referred By: VIRIDIANA Confirmed By:JERSEY KEMP
== END 2017-07-14 18:05 | disposition home or self-care (01) ==
LOC: ERS 10:56
DX: F41.9 Anxiety disorder, unspecified; N39.0 Urinary tract infection, site not specified; Z79.899 Other long term (current) drug therapy; Z87.891 Personal history of nicotine dependence; I10 Essential (primary) hypertension; K21.9 Gastro-esophageal reflux disease without esophagitis
CPT/HCPCS: 36415; 74176; 80053; 81003; 81015; 81025; 83690; 85025; 93005; 96361; 96374; 96375; C9113; J2270; J2405

== ENCOUNTER 2017-08-05 07:17 | Outpatient (CLI) | payer OTHER ==
--- NOTE | 2017-08-05 12:50 | NM ---
NUCLEAR MEDICINE HEPATOBILIARY SCAN: HISTORY: Right upper quadrant pain. History of possible sludge within the gallbladder noted on CT examination . COMPARISON: A CT study of 07/14/17. Examination is performed using 5.2 mCi of 99M Technetium mebrofenin at approximately 6 to 7 minutes. There appears to be gallbladder opacification. The liver shows a normal appearance. Emptying into the small bowel is seen by approximately 10-11 minutes. At approximately 57 minutes, the gallbladder disappears. Dr. Wilder questioned whether what we had seen was truly gallbladder, and a 2 mg dose of Morphine was given. Once again, there is opacification what appears to be gallbladder and on the de layed images it begins to disappear again suggesting it is fully erasmo. IMPRESSION: Unremarkable hepatobiliary scan. POS: [facility]
== END 2017-08-05 07:18 | disposition home or self-care (01) ==
LOC: NM 07:17
PROVIDERS: ATTEND Internal Medicine
DX: K80.20 Calculus of gallbladder without cholecystitis without obstruction (principal)
CPT/HCPCS: 78227; A9537; J2270

== ENCOUNTER 2018-09-29 08:39 | Outpatient (CLI) | payer OTHER ==
--- NOTE | 2018-09-29 09:31 | MMO ---
Bilateral MAMMO Bilat Screen [facility]. CLINICAL HISTORY: Patient is 48 years old and is seen for screening. The patient has no family history of breast cancer. The patient has no personal history of cancer. VIEWS: The views performed were: bilateral craniocaudal with tomosynthesis and bilateral mediolateral oblique with tomosynthesis. MAMMOGRAM FINDINGS: There are scattered fibroglandular densities. There are no suspicious masses, suspicious calcifications, or new areas of architectural distortion. IMPRESSION: THERE IS NO MAMMOGRAPHIC EVIDENCE OF MALIGNANCY. A ROUTINE FOLLOW-UP MAMMOGRAM IN 1 YEAR IS RECOMMENDED. THE RESULTS OF THIS EXAM WERE SENT TO THE PATIENT. ACR BI-RADS Category 1 - Negative MAMMOGRAPHY NOTE: 1. A negative mammogram report should not delay a biopsy if a dominant of clinically suspicious mass is present. 2. Approximately 10% to 15% of breast cancers are not detected by mammography. 3. Adenosis and dense breasts may obscure an underlying neoplasm.
== END 2018-09-29 08:40 | disposition home or self-care (01) ==
LOC: BICMAMMO 08:39
PROVIDERS: ATTEND Internal Medicine
DX: Z12.31 Encounter for screening mammogram for malignant neoplasm of breast (principal)
CPT/HCPCS: 77063; 77067

== ENCOUNTER 2020-08-19 13:38 | Outpatient (CLI) | payer OTHER | END 2020-08-19 13:39 | disposition home or self-care (01) | LOC: BICMAMMO 13:38 | PROVIDERS: ATTEND Internal Medicine | DX: Z12.31 Encounter for screening mammogram for malignant neoplasm of breast (principal) | CPT/HCPCS: 77063; 77067 ==

== ENCOUNTER 2021-10-13 11:19 | Emergency (ER) | payer OTHER ==
[2021-10-13] MEDS ORDERED: Ketorolac Tromethamine 30 MG/ML VIAL ONE (12:43)
== END 2021-10-13 13:03 | disposition home or self-care (01) ==
LOC: ERS 11:19
DX: K08.89 Other specified disorders of teeth and supporting structures (principal); I10 Essential (primary) hypertension; K21.9 Gastro-esophageal reflux disease without esophagitis; F17.210 Nicotine dependence, cigarettes, uncomplicated
CPT/HCPCS: 96372; 99282; J1885

== ENCOUNTER 2023-06-19 13:06 | Inpatient (IN) | payer OTHER ==
[2023-06-19 14:02] LABS: #Eosinphils 0.1 thou/uL (0.0-0.7); #Monocytes 0.6 thou/uL (0.11-0.59); #Neutrophils 7.9 thou/uL (1.40-6.50); %Basophils 0.3 % (0.0-1.0); %Eosinophils 0.7 % (0.0-10.0); %Monocytes 5.1 % (0.0-10.0); %Neutrophils 70.6 % (42.0-75.0); Hematocrit 34.6 % (36.0-47.0); Hemoglobin 12.5 g/dL (12.0-16.0); Mean Corpuscular HGB CONC 36.1 g/dL (32.0-36.0); Mean Corpuscular Volume 85.9 fl (78.0-98.0); Mean Platelet Volume 9.1 fL (7.4-10.4); Platelet Count 411 10x3/uL (130-400); RBC Distribution Width 13.4 % (11.5-14.5); Red Blood Cell (RBC) Count 4.03 mill/uL (4.20-5.40); White Blood Cell (WBC) Count 11.1 10x3/uL (4.8-10.8)
[2023-06-19 14:19] LABS: ALT (SGPT) 17 U/L (8-55); AST (SGOT) 17 U/L (5-34); Albumin 4.8 g/dL (3.5-5.0); Alkaline Phosphatase 91 U/L (40-110); Anion Gap 16 mmol/L (10-20); BUN (Urea Nitrogen) 6 mg/dL (9.8-20.1); Bilirubin, Total 0.4 mg/dL (0.2-1.2); Calc. Creatinine Clearance 0 mL/min (70-130); Calcium 10.2 mg/dL (7.8-10.44); Carbon Dioxide 19 mmol/L (22-29); Chloride 101 mmol/L (98-107); Estimated GFR 65; Globulin 3.2 g/dL (2.4-3.5); Glucose 106 mg/dL (70-105); Lipase 16 U/L (8-78); Magnesium 1.8 mg/dL (1.6-2.6); Potassium 2.8 mmol/L (3.5-5.1); Sodium 133 mmol/L (136-145)
[2023-06-19 14:23] LABS: Troponin I 0.013 ng/mL (< 0.028)
[2023-06-19] MEDS ORDERED: Potassium Chloride 20 MEQ TAB ONE (16:22)
[2023-06-19] MEDS ORDERED: Magnesium 2 GM/50 ML BAG (IN WATER) ONE (16:23)
[2023-06-19] MEDS ORDERED: hydrALAZINE 20 MG/ML VIAL ONE (16:52)
[2023-06-19 17:49] VITALS: BMI 24.5
[2023-06-19] MEDS: Scopolamine 1 mg/72 hour Patch TD SCH (18:08)
[2023-06-19 19:09] LABS: Influenza A by NAA Not Detected (NotDetected); Influenza B by NAA Not Detected (NotDetected); SARS-CoV-2 NAA Rapid Test Not Detected (NotDetected)
[2023-06-19] MEDS ORDERED: Ondansetron PF 4 MG/2 ML Vial IVP PRN (22:11)
[2023-06-19] MEDS ORDERED: Ondansetron ODT 4 MG TAB PO PRN (22:11)
[2023-06-19 22:52] LABS: Anion Gap 21 mmol/L (10-20); BUN (Urea Nitrogen) 7 mg/dL (9.8-20.1); Calc. Creatinine Clearance 38 mL/min (70-130); Calcium 10.7 mg/dL (7.8-10.44); Carbon Dioxide 21 mmol/L (22-29); Chloride 97 mmol/L (98-107); Estimated GFR 36; Glucose 142 mg/dL (70-105); Potassium 3.2 mmol/L (3.5-5.1); Sodium 136 mmol/L (136-145)
[2023-06-19] MEDS: Meclizine HCl 12.5 MG TAB PO PRN (22:55)
[2023-06-19] MEDS: Potassium Chloride 20 MEQ TAB PO SCH (23:48)
[2023-06-20] MEDS: Sodium Chloride 0.9% 1,000 ML IV SCH (00:04)
[2023-06-20] MEDS: Potassium Chloride 20 MEQ in Premix 1 BAG IVPB SCH ×2 (00:07→18:46)
[2023-06-20] MEDS: hydrALAZINE 20 MG/ML VIAL SLOW IVP PRN (00:25)
[2023-06-20] MEDS: Lidocaine 2% Viscous Solution 10 ML, Aluminum & Magnesium Hydroxide 30 ML SSW SCH (03:59)
[2023-06-20 06:45] LABS: #Neutrophils 9.7 thou/uL (1.40-6.50); %Basophils 0.2 % (0.0-1.0); %Lymphocytes 16.9 % (21.0-51.0); %Monocytes 7.9 % (0.0-10.0); %Neutrophils 74.6 % (42.0-75.0); Hematocrit 34.9 % (36.0-47.0); Hemoglobin 12.2 g/dL (12.0-16.0); Mean Corpuscular Hemoglobin 30.6 pg (27.0-31.0); Mean Corpuscular Volume 87.5 fl (78.0-98.0); Mean Platelet Volume 9.6 fL (7.4-10.4); Platelet Count 415 10x3/uL (130-400); RBC Distribution Width 13.7 % (11.5-14.5); Red Blood Cell (RBC) Count 3.99 mill/uL (4.20-5.40)
[2023-06-20 07:18] LABS: Anion Gap 20 mmol/L (10-20); BUN (Urea Nitrogen) 11 mg/dL (9.8-20.1); Calc. Creatinine Clearance 34 mL/min (70-130); Calcium 10.1 mg/dL (7.8-10.44); Carbon Dioxide 19 mmol/L (22-29); Chloride 99 mmol/L (98-107); Estimated GFR 31; Glucose 117 mg/dL (70-105); Magnesium 2.3 mg/dL (1.6-2.6); Potassium 3.6 mmol/L (3.5-5.1); Sodium 134 mmol/L (136-145)
[2023-06-20] MEDS: busPIRone HCl 10 MG TAB PO SCH (09:33)
[2023-06-20] MEDS: Acetaminophen 325 MG TAB PO PRN (09:36)
[2023-06-20] MEDS: NIFEdipine XL 90 MG ER.TAB PO SCH (09:36)
[2023-06-20] MEDS: Metamucil PACK PO SCH (09:38)
[2023-06-20] MEDS: Enoxaparin 40 MG (0.4 mL) SYRINGE SC SCH (09:48)
[2023-06-20 10:18] LABS: Amphetamine Not Detected (NotDetected); Barbiturates Screen Not Detected (NotDetected); Benzodiazepine Screen Not Detected (NotDetected); Cocaine Metabolite Screen Not Detected (NotDetected); Methadone Not Detected (NotDetected); Methamphetamine Not Detected (NotDetected); Opiate Screen Not Detected (NotDetected); Oxycodone Screen Not Detected (NotDetected); Phencyclidine (PCP) Not Detected (NotDetected); THC/Cannabinoid Screen Not Detected (NotDetected); Tricyclic Screen Detected (NotDetected)
[2023-06-20 10:29] LABS: Creatinine, Urine 37.53 mg/dL (47-110)
[2023-06-20 17:22] LABS: Anion Gap 16 mmol/L (10-20); BUN (Urea Nitrogen) 11 mg/dL (9.8-20.1); Calc. Creatinine Clearance 36 mL/min (70-130); Calcium 9.9 mg/dL (7.8-10.44); Carbon Dioxide 22 mmol/L (22-29); Chloride 98 mmol/L (98-107); Estimated GFR 34; Glucose 109 mg/dL (70-105); Magnesium 2.9 mg/dL (1.6-2.6); Sodium 133 mmol/L (136-145)
[2023-06-20] MEDS ORDERED: Potassium Chloride 40 MEQ in Premix 1 BAG IVPB SCH (18:15)
[2023-06-21] MEDS: Prochlorperazine Maleate 5 MG TAB PO SCH (04:01)
[2023-06-21 04:57] LABS: #Monocytes 0.9 thou/uL (0.11-0.59); #Neutrophils 7.3 thou/uL (1.40-6.50); %Basophils 0.3 % (0.0-1.0); %Eosinophils 0.2 % (0.0-10.0); %Lymphocytes 26.5 % (21.0-51.0); %Monocytes 7.7 % (0.0-10.0); Hematocrit 35.4 % (36.0-47.0); Hemoglobin 12.4 g/dL (12.0-16.0); Mean Corpuscular Hemoglobin 30.7 pg (27.0-31.0); Mean Corpuscular Volume 87.6 fl (78.0-98.0); Mean Platelet Volume 9.8 fL (7.4-10.4); Platelet Count 452 10x3/uL (130-400); RBC Distribution Width 13.9 % (11.5-14.5); Red Blood Cell (RBC) Count 4.04 mill/uL (4.20-5.40); White Blood Cell (WBC) Count 11.3 10x3/uL (4.8-10.8)
[2023-06-21 06:07] LABS: Anion Gap 21 mmol/L (10-20); BUN (Urea Nitrogen) 13 mg/dL (9.8-20.1); Calc. Creatinine Clearance 41 mL/min (70-130); Carbon Dioxide 16 mmol/L (22-29); Chloride 98 mmol/L (98-107); Estimated GFR 40; Glucose 114 mg/dL (70-105); Potassium 3.3 mmol/L (3.5-5.1); Sodium 132 mmol/L (136-145)
[2023-06-21] MEDS: Enoxaparin 30 MG (0.3 mL) SYRINGE SC SCH (08:29)
[2023-06-21] MEDS: Ondansetron ODT 4 MG TAB PO SCH (09:46)
[2023-06-21 13:47] LABS: Anion Gap 19 mmol/L (10-20); BUN (Urea Nitrogen) 15 mg/dL (9.8-20.1); Calc. Creatinine Clearance 37 mL/min (70-130); Calcium 10.2 mg/dL (7.8-10.44); Carbon Dioxide 19 mmol/L (22-29); Chloride 96 mmol/L (98-107); Estimated GFR 35; Glucose 126 mg/dL (70-105); Magnesium 2.1 mg/dL (1.6-2.6); Potassium 3.1 mmol/L (3.5-5.1); Sodium 131 mmol/L (136-145)
[2023-06-21] MEDS: Capsaicin 0.025% Cream 60 gm Tube TOP SCH (15:08)
[2023-06-21] MEDS: Potassium Chloride 20 MEQ TAB PO SCH (16:49)
[2023-06-21] MEDS: Ondansetron ODT 4 MG TAB PO PRN (16:49)
[2023-06-22 04:27] LABS: Bilirubin Negative (Negative); Blood, Urine Moderate (Negative); Glucose, Urine (Dipstick) 250 mg/dL (Negative); Ketone, Urine Negative (Negative); Leukocyte Negative (Negative); Nitrite Negative (Negative); Protein, Urine (Dipstick) Negative (Neg-Trace); Urobilinogen 0.2 mg/dL (Less than 2)
[2023-06-22 04:29] LABS: Bacteria/HPF None Seen HPF (None Seen); RBC/HPF 0-3 HPF (0-3); Squamous Epithelial 0-3 HPF (0-3); WBC/HPF 0-3 HPF (0-3)
[2023-06-22 04:32] LABS: Clarity Clear (Clear)
[2023-06-22 06:02] LABS: #Monocytes 0.8 thou/uL (0.11-0.59); #Neutrophils 5.6 thou/uL (1.40-6.50); %Basophils 0.2 % (0.0-1.0); %Eosinophils 0.2 % (0.0-10.0); %Lymphocytes 26.2 % (21.0-51.0); %Monocytes 9.1 % (0.0-10.0); %Neutrophils 64.2 % (42.0-75.0); Hematocrit 35.5 % (36.0-47.0); Hemoglobin 12.6 g/dL (12.0-16.0); Mean Corpuscular HGB CONC 35.5 g/dL (32.0-36.0); Mean Corpuscular Hemoglobin 31.2 pg (27.0-31.0); Mean Corpuscular Volume 87.9 fl (78.0-98.0); Mean Platelet Volume 9.1 fL (7.4-10.4); Platelet Count 425 10x3/uL (130-400); RBC Distribution Width 13.6 % (11.5-14.5); Red Blood Cell (RBC) Count 4.04 mill/uL (4.20-5.40); White Blood Cell (WBC) Count 8.7 10x3/uL (4.8-10.8)
[2023-06-22 06:20] LABS: Anion Gap 16 mmol/L (10-20); BUN (Urea Nitrogen) 20 mg/dL (9.8-20.1); Calc. Creatinine Clearance 32 mL/min (70-130); Carbon Dioxide 24 mmol/L (22-29); Chloride 94 mmol/L (98-107); Estimated GFR 30; Glucose 122 mg/dL (70-105); Sodium 131 mmol/L (136-145)
[2023-06-22] MEDS: Potassium Chloride 20 MEQ TAB PO SCH ×2 (09:26→13:01)
[2023-06-22] MEDS: Potassium Chloride 20 MEQ in Premix 1 BAG IVPB SCH (13:21)
[2023-06-22 13:36] LABS: Phosphorus 3.3 mg/dL (2.3-4.7)
[2023-06-22 13:40] LABS: Potassium 2.9 mmol/L (3.5-5.1)
[2023-06-22] MEDS: hydrALAZINE 25 MG TAB PO SCH (16:50)
[2023-06-22] MEDS: Simethicone Chewable 80 MG TAB PO PRN (21:09)
[2023-06-22] MEDS: Melatonin 3 MG TAB PO PRN (21:09)
[2023-06-22] MEDS: Lidocaine 2% Viscous Solution 10 ML, Aluminum & Magnesium Hydroxide 30 ML SSW SCH (23:50)
[2023-06-23 06:02] LABS: #Monocytes 0.7 thou/uL (0.11-0.59); #Neutrophils 4.3 thou/uL (1.40-6.50); %Basophils 0.3 % (0.0-1.0); %Eosinophils 0.1 % (0.0-10.0); %Lymphocytes 32.7 % (21.0-51.0); %Monocytes 9.8 % (0.0-10.0); Hematocrit 34.7 % (36.0-47.0); Hemoglobin 12.3 g/dL (12.0-16.0); Mean Corpuscular HGB CONC 35.4 g/dL (32.0-36.0); Mean Corpuscular Hemoglobin 30.8 pg (27.0-31.0); Mean Corpuscular Volume 86.8 fl (78.0-98.0); Mean Platelet Volume 9.3 fL (7.4-10.4); Platelet Count 421 10x3/uL (130-400); RBC Distribution Width 13.2 % (11.5-14.5); White Blood Cell (WBC) Count 7.5 10x3/uL (4.8-10.8)
[2023-06-23 06:23] LABS: Anion Gap 16 mmol/L (10-20); BUN (Urea Nitrogen) 18 mg/dL (9.8-20.1); Calc. Creatinine Clearance 39 mL/min (70-130); Calcium 10.5 mg/dL (7.8-10.44); Carbon Dioxide 24 mmol/L (22-29); Chloride 93 mmol/L (98-107); Estimated GFR 38; Glucose 160 mg/dL (70-105); Potassium 3.4 mmol/L (3.5-5.1); Sodium 130 mmol/L (136-145)
[2023-06-23] MEDS: Enoxaparin 40 MG (0.4 mL) SYRINGE SC SCH (08:53)
[2023-06-23] MEDS: Sodium Chloride 0.9% 1,000 ML IV SCH (19:04)
[2023-06-23 20:07] LABS: 24 Hr Phosphorus 0.2 g/24 hr (0.4-1.3); Phosphorus, Urine (Random) 22.4 mg/dL
[2023-06-23] MEDS: Ondansetron PF 4 MG/2 ML Vial IVP PRN (20:55)
[2023-06-24 05:13] LABS: #Monocytes 0.7 thou/uL (0.11-0.59); #Neutrophils 3.7 thou/uL (1.40-6.50); %Basophils 0.5 % (0.0-1.0); %Eosinophils 0.5 % (0.0-10.0); %Lymphocytes 31.3 % (21.0-51.0); %Monocytes 10.2 % (0.0-10.0); %Neutrophils 57.3 % (42.0-75.0); Hematocrit 34.1 % (36.0-47.0); Hemoglobin 12.2 g/dL (12.0-16.0); Mean Corpuscular HGB CONC 35.8 g/dL (32.0-36.0); Mean Corpuscular Hemoglobin 30.8 pg (27.0-31.0); Mean Corpuscular Volume 86.1 fl (78.0-98.0); Mean Platelet Volume 10.2 fL (7.4-10.4); Platelet Count 389 10x3/uL (130-400); RBC Distribution Width 13.2 % (11.5-14.5); Red Blood Cell (RBC) Count 3.96 mill/uL (4.20-5.40); White Blood Cell (WBC) Count 6.4 10x3/uL (4.8-10.8)
[2023-06-24 05:44] LABS: Anion Gap 19 mmol/L (10-20); BUN (Urea Nitrogen) 18 mg/dL (9.8-20.1); Calc. Creatinine Clearance 46 mL/min (70-130); Carbon Dioxide 22 mmol/L (22-29); Chloride 94 mmol/L (98-107); Estimated GFR 47; Glucose 114 mg/dL (70-105); Potassium 3.2 mmol/L (3.5-5.1); Sodium 132 mmol/L (136-145)
[2023-06-24] MEDS: Potassium Chloride 20 MEQ in Premix 1 BAG IVPB SCH (09:09)
[2023-06-24] MEDS: Polyethylene Glycol 3350 17 GM Packet PO SCH ×2 (10:37→20:43)
[2023-06-24] MEDS: Potassium Chloride 20 MEQ TAB PO SCH (14:33)
[2023-06-25 08:24] VITALS: BP 159/91; TEMP 98.6
[2023-06-25] MEDS ORDERED: Polyethylene Glycol 3350 17 GM Packet PO SCH (09:00)
[2023-06-25 10:46] LABS: #Monocytes 0.6 thou/uL (0.11-0.59); #Neutrophils 3.2 thou/uL (1.40-6.50); %Basophils 0.7 % (0.0-1.0); %Eosinophils 0.7 % (0.0-10.0); %Lymphocytes 34.3 % (21.0-51.0); %Monocytes 9.8 % (0.0-10.0); %Neutrophils 54.3 % (42.0-75.0); Hematocrit 29.8 % (36.0-47.0); Hemoglobin 10.4 g/dL (12.0-16.0); Mean Corpuscular HGB CONC 34.9 g/dL (32.0-36.0); Mean Corpuscular Hemoglobin 30.9 pg (27.0-31.0); Mean Corpuscular Volume 88.4 fl (78.0-98.0); Mean Platelet Volume 10.3 fL (7.4-10.4); Platelet Count 363 10x3/uL (130-400); RBC Distribution Width 13.2 % (11.5-14.5); Red Blood Cell (RBC) Count 3.37 mill/uL (4.20-5.40); White Blood Cell (WBC) Count 5.8 10x3/uL (4.8-10.8)
[2023-06-25 11:07] LABS: Anion Gap 12 mmol/L (10-20); BUN (Urea Nitrogen) 11 mg/dL (9.8-20.1); Calc. Creatinine Clearance 59 mL/min (70-130); Calcium 9.4 mg/dL (7.8-10.44); Carbon Dioxide 25 mmol/L (22-29); Chloride 96 mmol/L (98-107); Estimated GFR 63; Glucose 109 mg/dL (70-105); Potassium 3.3 mmol/L (3.5-5.1); Sodium 130 mmol/L (136-145)
[2023-06-27 10:13] LABS: Metanephrine,Plasma <25.0 pg/mL (0.0-88.0); Normetanephrine,Pl 82.6 pg/mL (0.0-244.0)
[2023-06-27 11:12] LABS: Dopamine 24H Ur 143 ug/24 hr (0-510); Dopamine,Ur 114 ug/L (Undefined); Epinephrine 24H Ur 6 ug/24 hr (0-20); Epinephrine,Ur 5 ug/L (Undefined); Norephinephrine 24H U 104 ug/24 hr (0-135); Norephinephrine,Ur 83 ug/L (Undefined)
== END 2023-06-25 10:51 | disposition home or self-care (01) | DRG 644 ==
LOC: ERS 13:06 → 2NO 15:09
PROVIDERS: ADMIT Family Medicine; ATTEND Family Medicine
DX: E22.2 Syndrome of inappropriate secretion of antidiuretic hormone (principal); N17.9 Acute kidney failure, unspecified; I16.0 Hypertensive urgency; E87.6 Hypokalemia; D75.839 Thrombocytosis, unspecified; D64.9 Anemia, unspecified; Z88.1 Allergy status to other antibiotic agents; I12.9 Hypertensive chronic kidney disease with stage 1 through stage 4 chronic kidney disease, or unspecified chronic kidney disease; N18.30 Chronic kidney disease, stage 3 unspecified; F41.9 Anxiety disorder, unspecified; Z82.49 Family history of ischemic heart disease and other diseases of the circulatory system; Z87.891 Personal history of nicotine dependence; I49.3 Ventricular premature depolarization; D63.1 Anemia in chronic kidney disease; E21.3 Hyperparathyroidism, unspecified
CPT/HCPCS: 36415; 71045; 74176; 76770; 78070; 80048; 80053; 80306; 81001; 82306; 82340; 82384; 82436; 82530; 82533; 82570; 83690; 83735; 83835; 83880; 83970; 84100; 84105; 84133; 84300; 84443; 84484; 85025; 93005; 96374; A9500; J0360; J1650; J2405; J3475; J3480; J7050; Q0162; Q0164

== ENCOUNTER 2024-11-29 12:03 | Outpatient (CLI) | payer OTHER | END 2024-11-29 12:04 | disposition home or self-care (01) | LOC: BICMAMMO 12:03 | PROVIDERS: ATTEND Student in an Organized Health Care Education/Training Program | DX: Z12.31 Encounter for screening mammogram for malignant neoplasm of breast (principal) | CPT/HCPCS: 77063; 77067 ==